=== PATIENT | female | born 1990 | race Hispanic/Latino ===

== ENCOUNTER 2024-04-10 02:15 | Inpatient (IN) | payer OTHER ==
[~2024-04-10] VITALS: Ht 154.9 cm; Wt 73.9 kg
[2024-04-10] MEDS: PANTOPrazole 40 MG/VIAL IVP ONE (02:30)
[2024-04-10] MEDS: 0.9%NACL 1000ML 1,000 ML IV ONE (02:30)
[2024-04-10 02:37] LABS: APPEARANCE,URINE CLEAR (CLEAR); BILIRUBIN,URINE NEGATIVE (NEGATIVE); COLOR,URINE COLORLESS (YELLOW); GLUCOSE, URINE (UA) NEGATIVE (NEGATIVE); KETONES,URINE NEGATIVE (NEGATIVE); LEUKOCYTE ESTERASE ,URINE NEGATIVE Leu/uL (NEGATIVE); NITRATE,URINE NEGATIVE (NEGATIVE); OCCULT BLOOD,URINE NEGATIVE (NEGATIVE); PROTEIN,URINE NEGATIVE (NEGATIVE); UROBILINOGEN,URINE 0.2 mg/dL (0.2-1.0)
[2024-04-10 02:37] LABS: BASOPHILS # (AUTO) 0.07 K/uL (0.00-0.20); BASOPHILS % (AUTO) 0.6 % (0.0-5.0); EOSINOPHILS # (AUTO) 0.17 K/uL (0.00-0.70); EOSINOPHILS % (AUTO) 1.5 % (0.0-8.0); IMMATURE GRANULOCYTE ABSOLUTE 0.03 K/uL (0-1); LYMPHOCYTES # (AUTO) 4.7 K/uL (1.0-4.8); LYMPHOCYTES % (AUTO) 40.2 % (21.0-51.0); MEAN CORPUSCULAR HEMOGLOBIN 30.3 pg (27.0-33.0); MEAN CORPUSCULAR HGB CONC 34.3 g/dL (32.0-36.0); MEAN CORPUSCULAR VOLUME 88.5 fL (79-99); MONOCYTES # (AUTO) 0.8 K/uL (0.1-1.0); MONOCYTES % (AUTO) 7.2 % (3.0-13.0); NEUTROPHILS # (AUTO) 5.8 K/uL (1.8-7.7); NEUTROPHILS % (AUTO) 50.2 % (40.0-77.0); PLATELET COUNT (AUTO) 278 K/uL (130-400); RED BLOOD CELL COUNT(AUTO) 4.52 MIL/uL (4.00-5.50); RED CELL DISTRIBUTION WIDTH 11.3 % (11.0-15.5); WHITE BLOOD COUNT (AUTO) 11.6 K/uL (4.8-10.8)
[2024-04-10 02:44] LABS: HCG,QUALITATIVE URINE NEGATIVE (NEGATIVE)
[2024-04-10 02:45] LABS: ADD UA MICROSCOPIC NO
[2024-04-10 02:47] LABS: CREATININE 0.8 mg/dL (0.5-1.0); POTASSIUM 4.3 mmol/L (3.5-5.1)
[2024-04-10 02:52] LABS: ALBUMIN 3.7 g/dL (3.5-5.0); BILIRUBIN,TOTAL 0.3 mg/dL (0.2-1.0); TOTAL PROTEIN, SERUM 7.5 g/dL (6.0-8.3)
--- NOTE | 2024-04-10 04:01 | ERN ---
General Chief Complaint: Abdominal Pain Stated Complaint: C/O RUQ PAIN WITH N X V X 5 DAYS Time Seen by MD: 02:20 Source: patient History of Present Illness Initial Comments PATIENT IS A 34-YEAR-OLD FEMALE COMING IN TO BE EVALUATED FOR RIGHT UPPER QUAD RANT PAIN. PATIENT WAS TOLD THAT SHE HAS GALLSTONES TWO YEARS AGO. SHE ALSO STATES THAT SHE WAS REFERRED TO A SURGEON RECENTLY. PATIENT STATES THAT THE PAIN IS IN THE RIGHT UPPER QUADRANT AREA RADIATES TO THE BACK SHARP 11/18. Allergies: Coded Allergies: No Known Allergies (Unverified Allergy, Unknown, 04/10/24) Past Medical History Past Medical History: No Pertinent History Past Surgical History: None Social History Social History: Negative Female( History) LMP: Mar 26, 2024 : 5 Para: 2 Aborts: 2 ROS Dictation CONSTITUTIONAL: NO CHILLS, NO FEVER, NO WEAKNESS, NO DIAPHORESIS, NO MALAISE. HEAD/FACE: NO SIGNS OF TRAUMA. EENT: NO EYE PAIN, NO BLURRED VISION, NO TEARING, NO DOUBLE VISION, NO EAR PAIN, NO EAR DISCHARGE, NO NOSE PAIN, NO NASAL CONGESTION, NO THROAT PAIN, NO THROAT SWELLING, NO MOUTH PAIN. RESPIRATORY: NO COUGH, NO ORTHOPNEA, NO SOB, NO STRIDOR, NO WHEEZING. CARDIOVASCULAR: NO CHEST PAIN, NO EDEMA, NO PALPITATIONS, NO SYNCOPE. GASTROINTESTINAL/ABDOMINAL: RIGHT UPPER QUADRANT PAIN REPRODUCIBLE ON PALPATION PAIN, NO CONSTIPATION, NO DIARRHEA, NO NAUSEA, NO VOMITING. GENITOURINARY: NO ABNORMAL DISCHARGE, NO DYSURIA, NO FREQUENT URINATION, NO HEMATURIA. NO COMPLAINTS OF PAIN IN THE GENITALS. MUSCULOSKELETAL: NO BACK PAIN, NO GOUT, NO JOINT PAIN, NO JOINT SWELLING, NO MUSCLE PAIN, NO MUSCLE STIFFNESS, NO NECK PAIN. INTEGUMENTARY: NO CHANGE IN COLOR, NO CHANGE IN HAIR/NAILS, NO DRYNESS, NO LESION, NO LUMPS, NO RASH. NEUROLOGICAL/PSYCH: NO ANXIETY, NOT DEPRESSED, NO EMOTIONAL PROBLEM, NO HEADACHE, NO NUMBNESS, NO PRE-EXISTING DEFICIT, NO HISTORY OF SEIZURES, NO TREMORS, NO WEAKNESS. HEMATOLOGIC/LYMPHATIC: NOT ANEMIC, NO HISTORY OF BLOOD CLOTS, NO APPARENT BLEEDING, NO BRUISING, GLANDS NOT SWOLLEN. ALL SYSTEMS NEGATIVE, EXCEPT NOTED. Physical Exam Physical Exam Dictation VITAL SIGNS: REVIEWED. GENERAL APPEARANCE: ALERT, ORIENTED X3, NO ACUTE DISTRESS, OBESE. HEAD AND FACE: NON-TRAUMATIC. EYES: PERRL, PINK CONJUNCTIVAS, EYELID NO TRAUMA, ANTERIOR CHAMBER CLEAR. EARS: PINNAS INTACT AND NO SIGNS OF TRAUMA OR ERYTHEMA. EAR CANALS CLEAR AND NO DISCHARGE. TMS NO ERYTHEMA. NOSE: NO DISCHARGE, NO BLEEDING. OROPHARYNX: MOUTH NORMAL, TEETH NO CARIES, TONGUE PINK. PHARYNX CLEAR, NO ERYTHEMA. TONSILS NO EXUDATES, NO ABSCESSES NOTED. MUCOUS MEMBRANE MOIST. NECK: SUPPLE, NON-TENDER, NO THYROMEGALY, NO MASSES, NO JVD, NO BRUITS. BREAST: DEFERRED. CHEST: NO TENDERNESS, NO CREPITUS, NO PARADOXICAL MOVEMENT, NO RETRACTIONS. LUNGS: CLEAR, WELL-VENTILATED, SYMMETRIC, NO RALES, NO WHEEZING, NO RHONCHI, NO STRIDOR, GOOD BREATH SOUNDS BILATERALLY. HEART: REGULAR RATE, REGULAR RHYTHM, NO MURMUR, NO GALLOPS. VASCULAR: NO PERIPHERAL EDEMA. ABDOMEN: SOFT, POSITIVE BOWEL SOUNDS, NONDISTENDED, NO GUARDING, RIGHT UPPER QUADRANT PAIN REPRODUCIBLE ON PALPATION, NO REBOUND, NO MASSES NO HEPATOMEGALY, NO SPLENOMEGALY, NO BROWN'S SIGN, NO HERNIAS. RECTAL: DEFERRED. GENITAL: DEFERRED. NEUROLOGICAL: NORMAL SPEECH, GROSS MOTOR FUNCTION INTACT, GROSS SENSORY FUN CTION INTACT. MUSCULOSKELETAL: NECK NONTENDER, FULL RANGE OF MOTION, BACK NONTENDER, FULL RANGE OF MOTION. EXTREMITIES: NONTENDER, FULL RANGE OF MOTION. SKIN: COLOR PINK, DRY, NO TURGOR, NO RASH, NO LACERATIONS, NO ABRASIONS, NO CONTUSIONS. LYMPHATICS: DEFERRED. Results Laboratory and Microbiology Lab and Micro Result Laboratory Tests Test 04/10/24 02:25 04/10/24 02:26 Urine Color COLORLESS (YELLOW) Urine Appearance CLEAR (CLEAR) Urine pH 6.0 (5.0-8.0) Urine Specific [facility] [place] 1.006 (1.001-1.031) Urine Protein NEGATIVE mg/dL (NEGATIVE) Urine Glucose (UA) NEGATIVE mg/dL (NEGATIVE) Urine Ketones NEGATIVE mg/dL (NEGATIVE) Urine Occult Blood NEGATIVE (NEGATIVE) Urine Nitrate NEGATIVE (NEGATIVE) Urine Bilirubin NEGATIVE mg/dL (NEGATIVE) Urine Urobilinogen 0.2 mg/dL (0.2-1.0) Urine Leukocyte Esterase NEGATIVE Massiel/uL Urine HCG, Qualitative NEGATIVE (NEGATIVE) White Blood Count 11.6 K/uL (4.8-10.8) H Red Blood Count 4.52 MIL/uL (4.00-5.50) Hemoglobin 13.7 g/dL (12.0-16.0) Hematocrit 40.0 % (36-48) Mean Corpuscular Volume 88.5 fL (79-99) Mean Corpuscular Hemoglobin 30.3 pg (27.0-33.0) Mean Corpuscular Hemoglobin Concent 34.3 g/dL (32.0-36.0) Red Cell Distribution Width 11.3 % (11.0-15.5) Platelet Count 278 K/uL (130-400) Mean Platelet Volume 10.4 fL (7.5-10.5) Immature Granulocyte % (Auto) 0.3 % (0-1) Neutrophils (%) (Auto) 50.2 % (40.0-77.0) Lymphocytes (%) (Auto) 40.2 % (21.0-51.0) Monocytes (%) (Auto) 7.2 % (3.0-13.0) Eosinophils (%) (Auto) 1.5 % (0.0-8.0) Basophils (%) (Auto) 0.6 % (0.0-5.0) Neutrophils # (Auto) 5.8 K/uL (1.8-7.7) Lymphocytes # (Auto) 4.7 K/uL (1.0-4.8) Monocytes # (Auto) 0.8 K/uL (0.1-1.0) Eosinophils # (Auto) 0.17 K/uL (0.00-0.70) Basophils # (Auto) 0.07 K/uL (0.00-0.20) Absolute Immature Granulocyte (auto 0.03 K/uL (0-1) Nucleated Red Blood Cells 0.0 % (0.0-0.19) Sodium Level 141 mmol/L (136-145) Potassium Level 4.3 mmol/L (3.5-5.1) Chloride Level 105 mmol/L (101-111) Carbon Dioxide Level 26 mmol/L (21-32) Blood Urea Nitrogen 18 mg/dL (7-18) Creatinine 0.8 mg/dL (0.5-1.0) Glomerular Filtration Rate Calc 98 mL/min (>90) Random Glucose 100 mg/dL (70-105) Total Calcium 8.7 mg/dL (8.5-10.1) Total Bilirubin 0.3 mg/dL (0.2-1.0) Aspartate Amino Transf (AST/SGOT) 15 U/L (10-37) Alanine Aminotransferase (ALT/SGPT) 22 U/L (12-78) Alkaline Phosphatase 108 U/L (50-136) Total Protein 7.5 g/dL (6.0-8.3) Albumin 3.7 g/dL (3.5-5.0) Lipase 37 U/L (16-77) Labs Reviewed?: Yes EKG/XRAY/US/CT/MRI Ultrasound Comment RIGHT UPPER QUADRANT ULTRASOUND- GALLSTONE AT THE NECK OF THE GALLBLADDER MDM MDM: DIFFERENTIAL DIAGNOSIS: GALLSTONE AT THE NECK OF THE GALLBLADDER, BROWN'S SIGN POSITIVE, RULE OUT ACUTE CHOLECYSTITIS RATIONALE: TESTS CONSIDERED AND ORDERED SECONDARY TO SHARED DECISION MAKING INCLUDE: LABS, ECG AND RADIOLOGY PREVIOUS OUTSIDE RECORDS REVIEWED: OLD ER VISITS. RISK OF COMPLICATION AND/OR MORBIDITY OR MORTALITY OF PATIENT MANAGEMENT: NONE MEDICATIONS-PER MEDICATION RECONCILIATION NEED FOR HOSPITALIZATION: PATIENT DOES MEET CRITERIA FOR HOSPITALIZATION. NEED FOR EMERGENCY MAJOR/MINOR SURGERY: NO THERE ARE NO SOCIAL CONCERNS WITH THIS PATIENT. PRESCRIPTION DRUG MANAGEMENT PRESCRIPTIONS WILL INCLUDE SYMPTOMATIC CARE PATIENT'S PRIOR EXTERNAL MEDICAL RECORDS FROM OTHER ER VISITS WERE REVIEWED BY ME INDICATED. PRIOR TESTING AND RESULTS FROM PREVIOUS VISITS WERE REVIEWED. PRIOR TESTS WERE TAKEN INTO ACCOUNT WITH MEDICAL DECISION MAKING AND RESOURCE UTILIZATION, INDEPENDENT HISTORIAN/HISTORIANS WERE USED TO OBTAIN COMPLETE MEDICAL HISTORY. I INDEPENDENTLY INTERPRETED THE TEST THAT WERE PERFORMED, RESULTS WERE REVIEWED BY ME AND CONSIDERED FINDINGS ON RADIOLOGY IF ORDERED. MEDICAL MANAGEMENT AND EXAMINATION INTERPRETATION DISCUSSIONS WERE HAD BY ME WITH OTHER QUALIFIED HEALTHCARE PROFESSIONALS INDICATED FOR THE PATIENT'S CARE. PATIENT WILL BE ADMITTED UNDER THE CARE OF HOSPITALIST GROUP FOR ONGOING EVALUATION OF CHOLECYSTITIS SECONDARY TO GALLSTONE AT THE NECK OF THE GALLBLADDER. SURGEON WILL BE CONSULTED UNOFFICIALLY ED Course Orders Procedure Category Date Status Time Cbc With Differential LAB 04/10/24 Complete 02:20 Comprehensive LAB 04/10/24 Complete Metabolic Panel 02:20 ,Urine Test LAB 04/10/24 Complete 02:20 Urinalysis Profile LAB 04/10/24 Complete 02:20 Us Abdominal Ruq\Ltd US 04/10/24 Taken 02:20 0.9%Nacl 1000ml (Ns PHA 04/10/24 Complete 1000ml) 02:30 Pantoprazole 40mg Inj PHA 04/10/24 Complete (Protonix 40mg Inj 02:30 Lipase LAB 04/10/24 Complete 02:20 Current Medications Medications (Trade) Dose Ordered Sig/Alcon Route PRN Reason Start Time Stop Time Status Last Admin Dose Admin Pantoprazole Sodium (PROTonix 40MG INJ) 40 mg ONCE ONCE IVP 04/10/24 02:30 04/10/24 02:31 DC 04/10/24 02:30 Sodium Chloride 1,000 ml @ 0 mls/hr ONCE ONCE IV 04/10/24 02:30 04/10/24 02:31 DC 04/10/24 02:30 Vital Signs Date Time Temp Pulse Resp B/P (MAP) Pulse Ox O2 Delivery O2 Flow Rate FiO2 04/10/24 02:38 97.9 79 18 132/65 99 Room Air* 0 21 04/10/24 02:19 97.9 80 20 106/79 98 Room Air DX & DISP Disposition: Inpatient Decision to Admit Time: 04:00 Departure Impression: Primary Impression: Acute cholecystitis Additional Impression: Gallstone (impacted) Condition: Stable Referrals: PAVITHRA PRO (PCP) TATIANA HIGGINBOTHAM MD Apr 10, 2024 04:01
[2024-04-10] MEDS: ZOSYN 3.375GM+NS 50ML 50 ML IV SCH (04:18)
[2024-04-10] MEDS: ondanSETRON 4MG INJ IVP PRN (04:18)
[2024-04-10] MEDS: LACTATED RINGERS 1000ML 1,000 ML IV SCH (04:18)
[2024-04-10] MEDS: morPHINE 2 MG SYG IVP PRN (04:18)
--- NOTE | 2024-04-10 04:25 | HP ---
[facility] HISTORY AND PHYSICAL Date of Service: Apr 10, 2024 Time of Service: 04:12 Attending physician:Colt HISTORY OF PRESENT ILLNESS: 34-year-old female with medical history of cholelithiasis, biliary colic who presented to the emergency department with chief complaints of right upper quadrant abdominal pain radiating to the back area, nausea and vomiting, described as sharp intense pain, intermittent, exacerbated with deep breathing and certain movement. She was diagnosed with cholelithiasis two years ago but was not evaluated by a surgeon. He went away since then until this past when she started experiencing the pain again. Progressively gotten worse she presented to the ED for further evaluation and management. Denies any fever , positive chills. ED presentation: Initial vital signs upon reliable tympanic temp 97.9, heart rate 80, respirations 20, blood pressure 106/79, saturating 98% on room air. Per ED report ultrasound shows gallstones and neck of the gallbladder. Lab work analysis shows WBCs 11.6. She received1 L NS bolus, Protonix 40 mg IV x1. Upon evaluation the patient is awake, alert and oriented. Bilateral breath sounds clear. Abdomen is soft, right upper quadrant tenderness, positive Powers's sign, positive bowel sounds. No other complaints reported. REVIEW OF SYSTEMS CONSTITUTIONAL: Denies fevers, + chills, or night sweats. No unintentional weight loss reported. NEUROLOGICAL: Denies headache, amaurosis fugax, motor weakness, sensory deficit, vertigo/spinning sensation, gait abnormalities, or tremors. ENT: No hearing loss, otalgia, otorrhea, rhinitis, rhinorrhea, hoarseness, or sore throat. CARDIOVASCULAR: Denies any exertional angina, dyspnea on exertion, orthopnea, paroxysmal nocturnal dyspnea, palpitations, life-threatening arrhythmias, claudication. PULMONARY: Denies any shortness of breath, cough, phlegm/sputum, hemoptysis, pleuritic chest pain. SLEEP: Denies morning headaches, daytime somnolence or napping. Denies difficul ty falling asleep, staying asleep, waking from sleep. Denies knowledge of snoring. GASTROINTESTINAL: Denies any type of dysphagia to either liquids or solids. Denies nausea, vomiting, pyrosis, early satiety, abdominal pain, diarrhea, constipation, or changes in stool consistency or caliber. Denies coffee-ground emesis, hematemesis, hematochezia, or melanotic stools. +Powers's sign GENITOURINARY: Denies frequency, urgency, nocturia, hematuria or incontinence (Storage/Irritative symptoms.) Low urinary stream, straining to void, urinary intermittency or hesitancy, splitting of the voiding stream, terminal dribbling. ENDOCRINOLOGIC: Denies polyuria, polydipsia, polyphagia or heat/cold intolerances. HEMATOLOGIC: Denies thrombophilia/previous clots, or coagulopathy/bleeding di sorders. ONCOLOGIC: Denies personal history of malignancy. DERMATOLOGIC: Denies rashes or pruritus. PSYCHIATRIC: Denies any suicidal or homicidal ideation. Denies hallucinations. PAST MEDICAL HISTORY: Cholelithiasis PAST SURGICAL HISTORY: [ ] PAST SOCIAL HISTORY: Occasional alcohol use FAMILY HISTORY: [ ] Coded Allergies: No Known Allergies (Unverified Allergy, Unknown, 04/10/24) PHYSICAL EXAM GENERAL APPEARANCE: The patient is awake, alert, and oriented, in no acute cardiopulmonary distress. NEUROLOGICAL: Cranial nerves II-XII grossly intact. Motor is 5/5 in bilateral upper and lower extremities proximal to distal. No sensory deficits. HEENT: Face is symmetric. Pupils are equal and reactive. Extraocular movements are intact. NECK: Supple. No JVD. No thyromegaly. No submental, submandibular, pre- /postauricular, occipital or supraclavicular lymphadenopathy. CHEST: Normal chest expansion. No Telemetry. LUNGS: Absence of any rales, rhonchi or any wheezing. CARDIOVASCULAR: Regular. S1 and S2 normal. No appreciable rubs, murmurs or gallops. ABDOMEN: Soft, nontender, and nondistended. There is no rebound, voluntary guarding, or rigidity. +Powers's sign : Deferred. No Salazar. EXTREMITIES: Non-edematous and not cyanotic. No clubbing. Good capillary refill. SKIN: No skin breakdown. Vital Sign (Last 24 Hours) 04/10/24 02:38 Temp 97.9 Pulse 79 Resp 18 B/P (MAP) 132/65 Pulse Ox 99 O2 Delivery Room Air* O2 Flow Rate 0 FiO2 21 LABS: Laboratory: Test 04/10/24 02:26 04/10/24 02:25 Range/Units White Blood Count 11.6 H 4.8-10.8 K/uL Red Blood Count 4.52 4.00-5.50 MIL/uL Hemoglobin 13.7 12.0-16.0 g/dL Hematocrit 40.0 36-48 % Mean Corpuscular Volume 88.5 79-99 fL Mean Corpuscular Hemoglobin 30.3 27.0-33.0 pg Mean Corpuscular Hemoglobin Concent 34.3 32.0-36.0 g/dL Red Cell Distribution Width 11.3 11.0-15.5 % Platelet Count 278 130-400 K/uL Mean Platelet Volume 10.4 7.5-10.5 fL Immature Granulocyte % (Auto) 0.3 0-1 % Neutrophils (%) (Auto) 50.2 40.0-77.0 % Lymphocytes (%) (Auto) 40.2 21.0-51.0 % Monocytes (%) (Auto) 7.2 3.0-13.0 % Eosinophils (%) (Auto) 1.5 0.0-8.0 % Basophils (%) (Auto) 0.6 0.0-5.0 % Neutrophils # (Auto) 5.8 1.8-7.7 K/uL Lymphocytes # (Auto) 4.7 1.0-4.8 K/uL Monocytes # (Auto) 0.8 0.1-1.0 K/uL Eosinophils # (Auto) 0.17 0.00-0.70 K/uL Basophils # (Auto) 0.07 0.00-0.20 K/uL Absolute Immature Granulocyte (auto 0.03 0-1 K/uL Nucleated Red Blood Cells 0.0 0.0-0.19 % Sodium Level 141 136-145 mmol/L Potassium Level 4.3 3.5-5.1 mmol/L Chloride Level 105 101-111 mmol/L Carbon Dioxide Level 26 21-32 mmol/L Blood Urea Nitrogen 18 7-18 mg/dL Creatinine 0.8 0.5-1.0 mg/dL Glomerular Filtration Rate Calc 98 >90 mL/min Random Glucose 100 70-105 mg/dL Total Calcium 8.7 8.5-10.1 mg/dL Total Bilirubin 0.3 0.2-1.0 mg/dL Aspartate Amino Transf (AST/SGOT) 15 10-37 U/L Alanine Aminotransferase (ALT/SGPT) 22 12-78 U/L Alkaline Phosphatase 108 50-136 U/L Total Protein 7.5 6.0-8.3 g/dL Albumin 3.7 3.5-5.0 g/dL Lipase 37 16-77 U/L Urine Color COLORLESS YELLOW Urine Appearance CLEAR CLEAR Urine pH 6.0 5.0-8.0 Urine Specific [place] 1.006 1.001-1.031 Urine Protein NEGATIVE NEGATIVE mg/dL Urine Glucose (UA) NEGATIVE NEGATIVE mg/dL Urine Ketones NEGATIVE NEGATIVE mg/dL Urine Occult Blood NEGATIVE NEGATIVE Urine Nitrate NEGATIVE NEGATIVE Urine Bilirubin NEGATIVE NEGATIVE mg/dL Urine Urobilinogen 0.2 0.2-1.0 mg/dL Urine Leukocyte Esterase NEGATIVE NEGATIVE Massiel/uL Urine HCG, Qualitative NEGATIVE NEGATIVE Current Medications Medications (Trade) Dose Ordered Sig/Alcon Route PRN Reason Start Time Stop Time Status Last Admin Dose Admin Acetaminophen (TYLenol 325MG TAB) 650 mg Q6H PRN PO MILD PAIN (1-3) 04/10/24 04:30 05/10/24 04:29 Lactated Ringer's 1,000 ml @ 100 mls/hr Q10H IV 04/10/24 04:30 05/10/24 04:29 UNV Morphine Sulfate (morPHINE 2MG SYG) 2 mg Q4H PRN IVP SEVERE PAIN (7-10) 04/10/24 04:30 04/17/24 04:29 UNV Piperacillin Sod/ Tazobactam Sod 50 ml @ 12.5 mls/hr ZOSY8 IV 04/10/24 05:00 04/20/24 04:59 UNV Tramadol HCl (UltRAM) 50 mg Q6H PRN PO MODERATE PAIN (4-6) 04/10/24 04:30 04/15/24 04:29 UNV DIAGNOSTICS / RADIOLOGY: [ ] ASSESSMENT: Biliary colic secondary to cholelithiasis, POA Suspected cholecystitis, POA Leukocytosis in the setting of suspected cholecystitis, POA Obesity class 1 PLAN: Admit inpatient to medical-surgical floor Keep NPO Start Zosyn empirically Lactated Ringer's at 100 mL/hour Consult General surgery in the morning Zofran as needed for nausea and vomiting Tylenol for pain or fever Prn medications for pain DVT prophylaxis not needed CBC BMP in the morning Monitor patient's condition and progress closely Disposition home Patient's case and plan of care discussed with the attending physician JUSTA GHOSH Apr 10, 2024 04:25
--- NOTE | 2024-04-10 04:29 | NUR ---
PATIENT NOT ON ANY HOME MEDS
[2024-04-10] MEDS ORDERED: traMADol HCL 50 MG TABLET PO PRN (04:30)
[2024-04-10 08:00] VITALS: BP 110/68; PULSE 71; RESP 20; TEMP 98.2; O2SAT 100
--- NOTE | 2024-04-10 08:38 | HMCIMG ---
US ABDOMINAL RUQ\E\LTD HISTORY: Adominal Pain COMPARISON: None FINDINGS: There is mild fatty infiltration of the liver. There are no focal liver masses. The liver is borderline in size at 16 cm.There is cholelithiasis with no wall thickening or pericholecystic edema. Common duct is normal at between 2 and 3 mm.. Right kidney is 10 x 3 x 4 cm. There is pelvicalyceal fullness which could represent borderline hydronephrosis..The pancreas appears normal as well. IMPRESSION: 1. Borderline hydronephrosis right kidney. 2. Cholelithiasis without evidence of acute cholecystitis. 3. Mild hepatic steatosis, liver is borderline in size at 16 cm.
--- NOTE | 2024-04-10 09:33 | NUR ---
CALLED IN CONSULT FOR DR. LINDSAY CARRASCO TO HER OFFICE.
--- NOTE | 2024-04-10 10:11 | NUR ---
DCP Pt awake, alert, oriented X3 lives with spouse Sharath Nunn [phone] in an apartment which has 18 steps to enter, does not have any medical equipment, able to perform ADLs. Anticipates discharge is for home. Addendum: 04/10/24 at 1014 by YANELI SCOTT RN CM Amended: Links added.
--- NOTE | 2024-04-10 11:32 | CONS ---
CONSULT NOTE: Consulting physician:Dr Bejarano Consulting service: General surgery Reason for consultation: biliary colic History of present illness: This 34-year-old female with no significant medical history has been consulted to surgery after presenting to the hospital with a five day history of abdominal discomfort. Due to significant increase in severity of pain patient presented for further evaluation. Patient reports last episode two years prior where she presented to the hospital and was sent home with antibiotics. Initial imaging concerning for cholelithiasis with no signs or evidence of cholecystitis on imaging. LFTs unremarkable. White count slightly elevated. Patient's pain better controlled after being medicated. Patient currently NPO Medical history: Known cholelithiasis Surgical history: Tubal ligation Review of systems: General: No Fever, No Chills, No Night Sweats, No Fatigue, No Malaise, No Appetite, No Other HEENT: No Head Aches, No Visual Changes, No Eye Pain, No Ear Pain, No Dysphasia, No Sinus Congestion, No Post Nasal Drip, No Sore Throat, No Other Pulmonary: No Dyspnea, No Cough, No Pleuritic Chest Pain, No Other Cardiovascular: No: Chest Pain, Palpitations, Orthopnea, Paroxysmal No Dyspnea, Edema, Lt Headedness, Other Gastrointestinal: No: Nausea, Vomiting, Diarrhea, Constipation, Melena, Hematochezia, Other Genitourinary: No Dysuria, No Frequency, No Incontinence, No Hematuria, No Retention, No Other Musculoskeletal: No: other, neck pain, shoulder pain, arm pain, back pain, hand pain, leg pain, foot pain Skin: No Urticaria, No Rash, No Other Neurological: No: Weakness, Numbness, Incoordination, Change in speech, Confusion, Seizures, Other Physical exam: General: Awake alert and oriented Heart: Regular rate and rhythm} Lungs: [Clear to auscultation no distress Abdomen: [ right upper quadrant tenderness to epigastric tenderness Assessment: This is a 34-year-old female with concerns of biliary colic versus potential cholecystitis Plan: At this point in time we will start with HIDA scan and await for findings Patient to be allowed diet after imaging If negative HIDA scan patient to be scheduled for follow up in outpatient setting for elective procedure If HIDA scan positive patient's likely be scheduled for surgical intervention later this week Dr. Cavazos to be updated in patient's status and surgical team to follow patient closely BRICE GALLOWAY Jr. Apr 10, 2024 11:32
[2024-04-10 12:00] VITALS: BP 98/59; PULSE 80; RESP 18; TEMP 97.4
[2024-04-10 16:20] VITALS: O2SAT 100
[2024-04-10 16:52] VITALS: BP 114/67; PULSE 79; RESP 18; TEMP 98
[2024-04-10] MEDS: acetaMINOPHEN 325 MG TAB PO PRN (19:42)
[2024-04-10 19:45] VITALS: O2SAT 98
--- NOTE | 2024-04-10 19:45 | NUR ---
H/A SHIFT ASSESSMENT DONE, PLEASE REFER TO CHART. PT CLAIMS OF HEADACHE. MEDICATED WITH TYLENOL PO FOR PAIN. KEPT NPO EXCEPT MEDS. PT REQUESTED TO SHOWER. SALINE LOCKED WRAPPED PIV SITE. PT'S FAMILY AT BEDSIDE IN ATTENDANCE TO NEEDS AT THIS TIME. WILL RE-ASSESS PT.
[2024-04-10 20:00] VITALS: BP 114/76; PULSE 81; RESP 20; TEMP 98
[2024-04-11] VITALS (7 sets, daily range): BP systolic 96–127; BP diastolic 54–80; PULSE 73–86; RESP 16–20; TEMP 97.6–98.3; O2SAT 97–100
--- NOTE | 2024-04-11 04:12 | NUR ---
PAIN PT AWAKENED TO USE THE RESTROOM. PT AMBULATORY WITHOUT ANY ASSIST. COMPLAINTS OF HAVING HEADACHE. MEDICATED WITH TYLENOL PO. ENCOURAGED TO GO BACK TO SLEEP. WILL RE-ASSESS PT.
--- NOTE | 2024-04-11 06:00 | NUR ---
ROUNDS PT RESTING WELL IN BED, STILL ASLEEP. KEPT UNDISTURBED FOR NOW. CALL LIGHT WITHIN REACH. KEPT NPO ORDERED. FOR MORE CARE.
[2024-04-11 07:00] LABS: BASOPHILS # (AUTO) 0.05 K/uL (0.00-0.20); BASOPHILS % (AUTO) 0.7 % (0.0-5.0); EOSINOPHILS # (AUTO) 0.12 K/uL (0.00-0.70); EOSINOPHILS % (AUTO) 1.6 % (0.0-8.0); HEMATOCRIT 35.1 % (36-48); IMMATURE GRANULOCYTE ABSOLUTE 0.01 K/uL (0-1); LYMPHOCYTES # (AUTO) 3.1 K/uL (1.0-4.8); LYMPHOCYTES % (AUTO) 41.2 % (21.0-51.0); MEAN CORPUSCULAR HEMOGLOBIN 30.5 pg (27.0-33.0); MEAN CORPUSCULAR HGB CONC 34.2 g/dL (32.0-36.0); MEAN CORPUSCULAR VOLUME 89.1 fL (79-99); MONOCYTES # (AUTO) 0.7 K/uL (0.1-1.0); MONOCYTES % (AUTO) 8.8 % (3.0-13.0); NEUTROPHILS # (AUTO) 3.6 K/uL (1.8-7.7); NEUTROPHILS % (AUTO) 47.6 % (40.0-77.0); PLATELET COUNT (AUTO) 230 K/uL (130-400); RED BLOOD CELL COUNT(AUTO) 3.94 MIL/uL (4.00-5.50); RED CELL DISTRIBUTION WIDTH 11.5 % (11.0-15.5); WHITE BLOOD COUNT (AUTO) 7.5 K/uL (4.8-10.8)
[2024-04-11 07:31] LABS: BILIRUBIN,TOTAL 0.6 mg/dL (0.2-1.0); CREATININE 0.8 mg/dL (0.5-1.0); MAGNESIUM 1.9 mg/dL (1.80-2.40); POTASSIUM 4.6 mmol/L (3.5-5.1); TOTAL PROTEIN, SERUM 6.6 g/dL (6.0-8.3)
--- NOTE | 2024-04-11 12:52 | PN ---
[facility] PROGRESS NOTE Date of Service: Apr 11, 2024 Time of Service: 12:49 SUBJECTIVE: 04/11/24 power chart review, patient remains hemodynamically stable, BP 121/69, rest of vital signs are normal, afebrile, saturating normal on room air. Results of CBC reviewed, WBC back to normal range. Patient on IV antibiotics with Zosyn pharmacy to dose. Creatinine remained stable at 0.8. Patient evaluated by General surgery, HIDA scan ordered, we will follow results. If negative HIDA scan patient to be scheduled for follow up as an outpatient for elective procedure, if positive, patient likely we will be scheduled for surgical intervention later this week. at bedside during my visit. REVIEW OF SYSTEMS CONSTITUTIONAL: Denies fevers, + chills, or night sweats. No unintentional weight loss reported. NEUROLOGICAL: Denies headache, amaurosis fugax, motor weakness, sensory deficit, vertigo/spinning sensation, gait abnormalities, or tremors. ENT: No hearing loss, otalgia, otorrhea, rhinitis, rhinorrhea, hoarseness, or sore throat. CARDIOVASCULAR: Denies any exertional angina, dyspnea on exertion, orthopnea, paroxysmal nocturnal dyspnea, palpitations, life-threatening arrhythmias, claudication. PULMONARY: Denies any shortness of breath, cough, phlegm/sputum, hemoptysis, pleuritic chest pain. SLEEP: Denies morning headaches, daytime somnolence or napping. Denies difficulty falling asleep, staying asleep, waking from sleep. Denies knowledge of snoring. GASTROINTESTINAL: Denies any type of dysphagia to either liquids or solids. Denies nausea, vomiting, pyrosis, early satiety, abdominal pain, diarrhea, constipation, or changes in stool consistency or caliber. Denies coffee-ground emesis, hematemesis, hematochezia, or melanotic stools. +Powers's sign GENITOURINARY: Denies frequency, urgency, nocturia, hematuria or incontinence (Storage/Irritative symptoms.) Low urinary stream, straining to void, urinary intermittency or hesitancy, splitting of the voiding stream, terminal dribbling. ENDOCRINOLOGIC: Denies polyuria, polydipsia, polyphagia or heat/cold intolerances. HEMATOLOGIC: Denies thrombophilia/previous clots, or coagulopathy/bleeding disorders. ONCOLOGIC: Denies personal history of malignancy. DERMATOLOGIC: Denies rashes or pruritus. PSYCHIATRIC: Denies any suicidal or homicidal ideation. Denies hallucinations. PHYSICAL EXAM GENERAL APPEARANCE: The patient is awake, alert, and oriented, in no acute cardiopulmonary distress. NEUROLOGICAL: Cranial nerves II-XII grossly intact. Motor is 5/5 in bilateral upper and lower extremities proximal to distal. No sensory deficits. HEENT: Face is symmetric. Pupils are equal and reactive. Extraocular movements are intact. NECK: Supple. No JVD. No thyromegaly. No submental, submandibular, pre-/postauricular, occipital or supraclavicular lymphadenopathy. CHEST: Normal chest expansion. No Telemetry. LUNGS: Absence of any rales, rhonchi or any wheezing. CARDIOVASCULAR: Regular. S1 and S2 normal. No appreciable rubs, murmurs or gallops. ABDOMEN: Soft, nontender, and nondistended. There is no rebound, voluntary guarding, or rigidity. +Powers's sign : Deferred. No Salazar. EXTREMITIES: Non-edematous and not cyanotic. No clubbing. Good capillary refill. SKIN: No skin breakdown. Vital Signs (last 8hr) Date Time Temp Pulse Resp B/P (MAP) Pulse Ox O2 Delivery O2 Flow Rate FiO2 04/11/24 11:33 98.1 73 18 121/69 97 Room Air 04/11/24 08:30 97.5 84 16 114/64 97 Room Air LABS: Laboratory: Test 04/11/24 06:19 04/10/24 02:26 04/10/24 02:25 Range/Units White Blood Count 7.5 4.8-10.8 K/uL Red Blood Count 3.94 L 4.00-5.50 MIL/uL Hemoglobin 12.0 12.0-16.0 g/dL Hematocrit 35.1 L 36-48 % Mean Corpuscular Volume 89.1 79-99 fL Mean Corpuscular Hemoglobin 30.5 27.0-33.0 pg Mean Corpuscular Hemoglobin Concent 34.2 32.0-36.0 g/dL Red Cell Distribution Width 11.5 11.0-15.5 % Platelet Count 230 130-400 K/uL Mean Platelet Volume 10.5 7.5-10.5 fL Immature Granulocyte % (Auto) 0.1 0-1 % Neutrophils (%) (Auto) 47.6 40.0-77.0 % Lymphocytes (%) (Auto) 41.2 21.0-51.0 % Monocytes (%) (Auto) 8.8 3.0-13.0 % Eosinophils (%) (Auto) 1.6 0.0-8.0 % Basophils (%) (Auto) 0.7 0.0-5.0 % Neutrophils # (Auto) 3.6 1.8-7.7 K/uL Lymphocytes # (Auto) 3.1 1.0-4.8 K/uL Monocytes # (Auto) 0.7 0.1-1.0 K/uL Eosinophils # (Auto) 0.12 0.00-0.70 K/uL Basophils # (Auto) 0.05 0.00-0.20 K/uL Absolute Immature Granulocyte (auto 0.01 0-1 K/uL Nucleated Red Blood Cells 0.0 0.0-0.19 % Sodium Level 141 136-145 mmol/L Potassium Level 4.6 3.5-5.1 mmol/L Chloride Level 107 101-111 mmol/L Carbon Dioxide Level 28 21-32 mmol/L Blood Urea Nitrogen 8 7-18 mg/dL Creatinine 0.8 0.5-1.0 mg/dL Glomerular Filtration Rate Calc 98 >90 mL/min Random Glucose 86 70-105 mg/dL Total Calcium 8.4 L 8.5-10.1 mg/dL Magnesium Level 1.90 1.80-2.40 mg/dL Total Bilirubin 0.6 0.2-1.0 mg/dL Aspartate Amino Transf (AST/SGOT) 66 H 10-37 U/L Alanine Aminotransferase (ALT/SGPT) 99 H 12-78 U/L Alkaline Phosphatase 116 50-136 U/L Total Protein 6.6 6.0-8.3 g/dL Albumin 3.0 L 3.5-5.0 g/dL Lipase 37 16-77 U/L Urine Color COLORLESS YELLOW Urine Appearance CLEAR CLEAR Urine pH 6.0 5.0-8.0 Urine Specific [place] 1.006 1.001-1.031 Urine Protein NEGATIVE NEGATIVE mg/dL Urine Glucose (UA) NEGATIVE NEGATIVE mg/dL Urine Ketones NEGATIVE NEGATIVE mg/dL Urine Occult Blood NEGATIVE NEGATIVE Urine Nitrate NEGATIVE NEGATIVE Urine Bilirubin NEGATIVE NEGATIVE mg/dL Urine Urobilinogen 0.2 0.2-1.0 mg/dL Urine Leukocyte Esterase NEGATIVE NEGATIVE [place]/uL Urine HCG, Qualitative NEGATIVE NEGATIVE Current Medications Medications (Trade) Dose Ordered Sig/Alcon Route PRN Reason Start Time Stop Time Status Last Admin Dose Admin Acetaminophen (TYLenol 325MG TAB) 650 mg Q6H PRN PO MILD PAIN (1-3) 04/10/24 04:30 05/10/24 04:29 04/11/24 04:12 650 MG Lactated Ringer's 1,000 ml @ 100 mls/hr Q10H IV 04/10/24 04:30 05/10/24 04:29 04/11/24 09:46 100 MLS/HR Morphine Sulfate (morPHINE 2MG SYG) 2 mg Q4H PRN IVP SEVERE PAIN (7-10) 04/10/24 04:30 04/17/24 04:29 04/10/24 16:10 2 MG Ondansetron HCl (zoFRAN 4MG INJ) 4 mg Q6H PRN IVP NAUSEA/VOMITING 04/10/24 04:30 05/10/24 04:29 04/10/24 04:18 4 MG Piperacillin Sod/ Tazobactam Sod 50 ml @ 12.5 mls/hr [id number] IV 04/10/24 05:00 04/20/24 04:59 04/11/24 04:00 12.5 MLS/HR Tramadol HCl (UltRAM) 50 mg Q6H PRN PO MODERATE PAIN (4-6) 04/10/24 04:30 04/15/24 04:29 DIAGNOSTICS / RADIOLOGY: [ ] ASSESSMENT: Biliary colic secondary to cholelithiasis, POA Suspected cholecystitis, POA Leukocytosis in the setting of suspected cholecystitis, POA Obesity class 1 PLAN: Remains admitted to the medical floor. Keep NPO Continue Zosyn IV Lactated Ringer's at 100 mL/hour Continue to follow surgical input and recommendations Zofran as needed for nausea and vomiting Tylenol for pain or fever Prn medications for pain DVT prophylaxis not needed CBC BMP in the morning Monitor patient's condition and progress closely Disposition: Patient remains admitted to medical floor, continue NPO, pending HIDA results. If negative we will follow up as an outpatient for elective procedure with General surgery, if positive plan for surgical intervention later this week. VERN SON MD Apr 11, 2024 12:52
--- NOTE | 2024-04-11 18:12 | PN ---
GENERAL SURGERY PROGRESS NOTE Date/Time Patient Seen: 04/11/2024 5:45 p.m. Problem List: Biliary colic Interval History: Patient reports that her pain has significantly improved. She is tolerating clear liquids. HIDA scan results pending. Current Medications Medications (Trade) Dose Ordered Sig/Alcon Route Start Time Stop Time Status Last Admin Dose Admin Lactated Ringer's 1,000 ml @ 100 mls/hr Q10H IV 04/10/24 04:30 05/10/24 04:29 04/11/24 09:46 100 MLS/HR Piperacillin Sod/ Tazobactam Sod 50 ml @ 12.5 mls/hr [id number] IV 04/10/24 05:00 04/20/24 04:59 04/11/24 12:55 12.5 MLS/HR Physical Examination: GENERAL: No acute distress. HEAD: Normal with no signs of head trauma. LUNGS: Respirations nonlabored HEART: Regular rate and rhythm ABD: Soft, nondistended, nontender, no rebound, no guarding : Not examined LYMPH: No lymphadenopathy noted. EXT: No clubbing, cyanosis or edema. SKIN: No rashes or lesions noted. NEURO: Awake, alert, and oriented x3. No focal sensory or strength deficits noted. Vital Signs (last 8hr) Date Time Temp Pulse Resp B/P (MAP) Pulse Ox O2 Delivery O2 Flow Rate FiO2 04/11/24 16:41 97.9 80 18 127/73 95 Room Air 04/11/24 11:33 98.1 73 18 121/69 97 Room Air Laboratory: Hematology Labs: Test 04/11/24 06:19 Range/Units White Blood Count 7.5 4.8-10.8 K/uL Red Blood Count 3.94 L 4.00-5.50 MIL/uL Hemoglobin 12.0 12.0-16.0 g/dL Hematocrit 35.1 L 36-48 % Mean Corpuscular Volume 89.1 79-99 fL Mean Corpuscular Hemoglobin 30.5 27.0-33.0 pg Mean Corpuscular Hemoglobin Concent 34.2 32.0-36.0 g/dL Red Cell Distribution Width 11.5 11.0-15.5 % Platelet Count 230 130-400 K/uL Mean Platelet Volume 10.5 7.5-10.5 fL Immature Granulocyte % (Auto) 0.1 0-1 % Neutrophils (%) (Auto) 47.6 40.0-77.0 % Lymphocytes (%) (Auto) 41.2 21.0-51.0 % Monocytes (%) (Auto) 8.8 3.0-13.0 % Eosinophils (%) (Auto) 1.6 0.0-8.0 % Basophils (%) (Auto) 0.7 0.0-5.0 % Neutrophils # (Auto) 3.6 1.8-7.7 K/uL Lymphocytes # (Auto) 3.1 1.0-4.8 K/uL Monocytes # (Auto) 0.7 0.1-1.0 K/uL Eosinophils # (Auto) 0.12 0.00-0.70 K/uL Basophils # (Auto) 0.05 0.00-0.20 K/uL Absolute Immature Granulocyte (auto 0.01 0-1 K/uL Nucleated Red Blood Cells 0.0 0.0-0.19 % Chemistry Labs: Test 04/11/24 06:19 04/10/24 02:26 Range/Units Sodium Level 141 136-145 mmol/L Potassium Level 4.6 3.5-5.1 mmol/L Chloride Level 107 101-111 mmol/L Carbon Dioxide Level 28 21-32 mmol/L Blood Urea Nitrogen 8 7-18 mg/dL Creatinine 0.8 0.5-1.0 mg/dL Glomerular Filtration Rate Calc 98 >90 mL/min Random Glucose 86 70-105 mg/dL Total Calcium 8.4 L 8.5-10.1 mg/dL Magnesium Level 1.90 1.80-2.40 mg/dL Total Bilirubin 0.6 0.2-1.0 mg/dL Aspartate Amino Transf (AST/SGOT) 66 H 10-37 U/L Alanine Aminotransferase (ALT/SGPT) 99 H 12-78 U/L Alkaline Phosphatase 116 50-136 U/L Total Protein 6.6 6.0-8.3 g/dL Albumin 3.0 L 3.5-5.0 g/dL Lipase 37 16-77 U/L Diagnostics / Radiology: No new imaging Impression and Plan: This is a 34-year-old female with right upper quadrant abdominal pain that appears to have resolved. This is most likely due to symptomatic cholelithiasis. HIDA scan is pending to rule out acute cholecystitis. Patient is okay for clear liquid diet from a surgical standpoint. She should made NPO at midnight in case the HIDA scan comes back positive. LUIS A OVALLE DO Apr 11, 2024 18:12
[2024-04-12] VITALS: BP 109/74; PULSE 83; RESP 18; TEMP 98.1
[2024-04-12 04:00] VITALS: BP 106/74; PULSE 85; RESP 20; TEMP 97.9
[2024-04-12 04:53] LABS: HEMATOCRIT 34.8 % (36-48); MEAN CORPUSCULAR HEMOGLOBIN 30.4 pg (27.0-33.0); MEAN CORPUSCULAR HGB CONC 33.9 g/dL (32.0-36.0); MEAN CORPUSCULAR VOLUME 89.7 fL (79-99); RED BLOOD CELL COUNT(AUTO) 3.88 MIL/uL (4.00-5.50); RED CELL DISTRIBUTION WIDTH 11.5 % (11.0-15.5); WHITE BLOOD COUNT (AUTO) 8.4 K/uL (4.8-10.8)
[2024-04-12 05:22] LABS: ALBUMIN 2.9 g/dL (3.5-5.0); BILIRUBIN,TOTAL 0.2 mg/dL (0.2-1.0); CREATININE 0.8 mg/dL (0.5-1.0); MAGNESIUM 1.8 mg/dL (1.80-2.40); POTASSIUM 4.5 mmol/L (3.5-5.1); TOTAL PROTEIN, SERUM 6.6 g/dL (6.0-8.3)
[2024-04-12 08:12] VITALS: BP 112/72; PULSE 75; RESP 16; TEMP 98.3
--- NOTE | 2024-04-12 08:45 | HMCIMG ---
NM HIDA WO EF/CCK REASON: CHOLELITHIASIS COMPARISON: None TECHNIQUE: Routine images are acquired following injection of 7 mCi technetium 99m Choletec. FINDINGS: There is prompt hepatic uptake and excretion. There is prompt appearance of common duct activity. There is a focal area of gradually increasing uptake centrally in the liver hilum which may be early appearance of the gallbladder. 4 hour delay was performed, hepatic activity has nearly completely cleared, there is persistent activity in the region of the liver hilum consistent with gallbladder. IMPRESSION: 1. Normal hepatobiliary scan.
[2024-04-12 09:06] VITALS: O2SAT 98
[2024-04-12 11:52] VITALS: BP 112/70; PULSE 86; RESP 18; TEMP 98.2
--- NOTE | 2024-04-12 13:05 | PN ---
[facility] PROGRESS NOTE Date of Service: Apr 12, 2024 Time of Service: 13:01 SUBJECTIVE: 04/11/24 power chart review, patient remains hemodynamically stable, BP 121/69, rest of vital signs are normal, afebrile, saturating normal on room air. Results of CBC reviewed, WBC back to normal range. Patient on IV antibiotics with Zosyn pharmacy to dose. Creatinine remained stable at 0.8. Patient evaluated by General surgery, HIDA scan ordered, we will follow results. If negative HIDA scan patient to be scheduled for follow up as an outpatient for elective procedure, if positive, patient likely we will be scheduled for surgical intervention later this week. at bedside during my visit. 04/12/24 patient is seen and examined, BP 112/70, afebrile, saturating normal on room air. CBC shows hemoglobin 11.8, hematocrit 34 point eight, platelet count of 213. CMP is unremarkable. HIDA scan showing normal hepatobiliary scan. The patient was started on clear liquid diet yesterday. Pending further recommendations by General surgery in terms of lap judie as an outpatient versus inpatient. We will follow up. Patient to be discharged home today, cleared from surgical standpoint. Patient can follow up as an outpatient. REVIEW OF SYSTEMS CONSTITUTIONAL: Denies fevers, + chills, or night sweats. No unintentional weight loss reported. NEUROLOGICAL: Denies headache, amaurosis fugax, motor weakness, sensory deficit, vertigo/spinning sensation, gait abnormalities, or tremors. ENT: No hearing loss, otalgia, otorrhea, rhinitis, rhinorrhea, hoarseness, or sore throat. CARDIOVASCULAR: Denies any exertional angina, dyspnea on exertion, orthopnea, paroxysmal nocturnal dyspnea, palpitations, life-threatening arrhythmias, claudication. PULMONARY: Denies any shortness of breath, cough, phlegm/sputum, hemoptysis, pleuritic chest pain. SLEEP: Denies morning headaches, daytime somnolence or napping. Denies difficulty falling asleep, staying asleep, waking from sleep. Denies knowledge of snoring. GASTROINTESTINAL: Denies any type of dysphagia to either liquids or solids. Denies nausea, vomiting, pyrosis, early satiety, abdominal pain, diarrhea, constipation, or changes in stool consistency or caliber. Denies coffee-ground emesis, hematemesis, hematochezia, or melanotic stools. +Powers's sign GENITOURINARY: Denies frequency, urgency, nocturia, hematuria or incontinence (Storage/Irritative symptoms.) Low urinary stream, straining to void, urinary intermittency or hesitancy, splitting of the voiding stream, terminal dribbling. ENDOCRINOLOGIC: Denies polyuria, polydipsia, polyphagia or heat/cold intolerances. HEMATOLOGIC: Denies thrombophilia/previous clots, or coagulopathy/bleeding disorders. ONCOLOGIC: Denies personal history of malignancy. DERMATOLOGIC: Denies rashes or pruritus. PSYCHIATRIC: Denies any suicidal or homicidal ideation. Denies hallucinations. PHYSICAL EXAM GENERAL APPEARANCE: The patient is awake, alert, and oriented, in no acute cardiopulmonary distress. NEUROLOGICAL: Cranial nerves II-XII grossly intact. Motor is 5/5 in bilateral upper and lower extremities proximal to distal. No sensory deficits. HEENT: Face is symmetric. Pupils are equal and reactive. Extraocular movements are intact. NECK: Supple. No JVD. No thyromegaly. No submental, submandibular, pre- /postauricular, occipital or supraclavicular lymphadenopathy. CHEST: Normal chest expansion. No Telemetry. LUNGS: Absence of any rales, rhonchi or any wheezing. CARDIOVASCULAR: Regular. S1 and S2 normal. No appreciable rubs, murmurs or gallops. ABDOMEN: Soft, nontender, and nondistended. There is no rebound, voluntary guarding, or rigidity. +Powers's sign : Deferred. No Salazar. EXTREMITIES: Non-edematous and not cyanotic. No clubbing. Good capillary refill. SKIN: No skin breakdown. Vital Signs (last 8hr) Date Time Temp Pulse Resp B/P (MAP) Pulse Ox O2 Delivery O2 Flow Rate FiO2 04/12/24 11:52 98.2 86 18 112/70 98 Room Air 04/12/24 08:12 98.2 75 16 112/72 98 Room Air LABS: Laboratory: Test 04/12/24 04:42 04/11/24 06:19 Range/Units White Blood Count 8.4 4.8-10.8 K/uL Red Blood Count 3.88 L 4.00-5.50 MIL/uL Hemoglobin 11.8 L 12.0-16.0 g/dL Hematocrit 34.8 L 36-48 % Mean Corpuscular Volume 89.7 79-99 fL Mean Corpuscular Hemoglobin 30.4 27.0-33.0 pg Mean Corpuscular Hemoglobin Concent 33.9 32.0-36.0 g/dL Red Cell Distribution Width 11.5 11.0-15.5 % Platelet Count 213 130-400 K/uL Mean Platelet Volume 10.4 7.5-10.5 fL Nucleated Red Blood Cells 0.0 0.0-0.19 % Sodium Level 140 136-145 mmol/L Potassium Level 4.5 3.5-5.1 mmol/L Chloride Level 106 101-111 mmol/L Carbon Dioxide Level 27 21-32 mmol/L Blood Urea Nitrogen 10 7-18 mg/dL Creatinine 0.8 0.5-1.0 mg/dL Glomerular Filtration Rate Calc 98 >90 mL/min Random Glucose 104 70-105 mg/dL Total Calcium 8.6 8.5-10.1 mg/dL Magnesium Level 1.80 1.80-2.40 mg/dL Total Bilirubin 0.2 # 0.2-1.0 mg/dL Aspartate Amino Transf (AST/SGOT) 44 H 10-37 U/L Alanine Aminotransferase (ALT/SGPT) 83 H 12-78 U/L Alkaline Phosphatase 118 50-136 U/L Total Protein 6.6 6.0-8.3 g/dL Albumin 2.9 L 3.5-5.0 g/dL Immature Granulocyte % (Auto) 0.1 0-1 % Neutrophils (%) (Auto) 47.6 40.0-77.0 % Lymphocytes (%) (Auto) 41.2 21.0-51.0 % Monocytes (%) (Auto) 8.8 3.0-13.0 % Eosinophils (%) (Auto) 1.6 0.0-8.0 % Basophils (%) (Auto) 0.7 0.0-5.0 % Neutrophils # (Auto) 3.6 1.8-7.7 K/uL Lymphocytes # (Auto) 3.1 1.0-4.8 K/uL Monocytes # (Auto) 0.7 0.1-1.0 K/uL Eosinophils # (Auto) 0.12 0.00-0.70 K/uL Basophils # (Auto) 0.05 0.00-0.20 K/uL Absolute Immature Granulocyte (auto 0.01 0-1 K/uL Current Medications Medications (Trade) Dose Ordered Sig/Alcon Route PRN Reason Start Time Stop Time Status Last Admin Dose Admin Acetaminophen (TYLenol 325MG TAB) 650 mg Q6H PRN PO MILD PAIN (1-3) 04/10/24 04:30 05/10/24 04:29 04/11/24 04:12 650 MG Lactated Ringer's 1,000 ml @ 100 mls/hr Q10H IV 04/10/24 04:30 05/10/24 04:29 04/11/24 19:56 100 MLS/HR Morphine Sulfate (morPHINE 2MG SYG) 2 mg Q4H PRN IVP SEVERE PAIN (7-10) 04/10/24 04:30 04/17/24 04:29 04/12/24 09:09 2 MG Ondansetron HCl (zoFRAN 4MG INJ) 4 mg Q6H PRN IVP NAUSEA/VOMITING 04/10/24 04:30 05/10/24 04:29 04/12/24 03:28 4 MG Piperacillin Sod/ Tazobactam Sod 50 ml @ 12.5 mls/hr [id number] IV 04/10/24 05:00 04/20/24 04:59 04/12/24 12:27 12.5 MLS/HR Tramadol HCl (UltRAM) 50 mg Q6H PRN PO MODERATE PAIN (4-6) 04/10/24 04:30 04/15/24 04:29 DIAGNOSTICS / RADIOLOGY: [ ] ASSESSMENT: Biliary colic secondary to cholelithiasis, POA Suspected cholecystitis, POA Leukocytosis in the setting of suspected cholecystitis, POA Obesity class 1 PLAN: Remains admitted to the medical floor. Keep NPO Continue Zosyn IV Lactated Ringer's at 100 mL/hour Continue to follow surgical input and recommendations Zofran as needed for nausea and vomiting Tylenol for pain or fever Prn medications for pain DVT prophylaxis not needed CBC BMP in the morning Monitor patient's condition and progress closely Disposition: Remains admitted to the medical floor, HIDA scan is normal, pending further recommendations by General surgery. VERN SON MD Apr 12, 2024 13:05
[2024-04-12] MEDS ORDERED: AMOX1TAB16 PO (15:24)
--- NOTE | 2024-04-12 15:26 | DS ---
Discharge Summary Hospital Course Summary: The patient admitted to the hospital April 10, 2024 with the following history of the present illness: 34-year-old female with medical history of cholelithiasis, biliary colic who presented to the emergency department with chief complaints of right upper quadrant abdominal pain radiating to the back area, nausea and vomiting, described as sharp intense pain, intermittent, exacerbated with deep breathing and certain movement. She was diagnosed with cholelithiasis two years ago but was not evaluated by a surgeon. He went away since then until this past when she started experiencing the pain again. Progressively gotten worse she presented to the ED for further evaluation and management. Denies any fever , positive chills. ED presentation: Initial vital signs upon reliable tympanic temp 97.9, heart rate 80, respirations 20, blood pressure 106/79, saturating 98% on room air. Per ED report ultrasound shows gallstones and neck of the gallbladder. Lab work analysis shows WBCs 11.6. She received1 L NS bolus, Protonix 40 mg IV x1. Upon evaluation the patient is awake, alert and oriented. Bilateral breath sounds clear. Abdomen is soft, right upper quadrant tenderness, positive Powers's sign, positive bowel sounds. No other complaints reported. 04/11/24 power chart review, patient remains hemodynamically stable, BP 121/69, rest of vital signs are normal, afebrile, saturating normal on room air. Results of CBC reviewed, WBC back to normal range. Patient on IV antibiotics with Zosyn pharmacy to dose. Creatinine remained stable at 0.8. Patient evaluated by General surgery, HIDA scan ordered, we will follow results. If negative HIDA scan patient to be scheduled for follow up as an outpatient for elective procedure, if positive, patient likely we will be scheduled for surgical intervention later this week. at bedside during my visit. 04/12/24 patient is seen and examined, BP 112/70, afebrile, saturating normal on room air. CBC shows hemoglobin 11.8, hematocrit 34 point eight, platelet count of 213. CMP is unremarkable. HIDA scan showing normal hepatobiliary scan. The patient was started on clear liquid diet yesterday. Pending further recommendations by General surgery in terms of lap judie as an outpatient versus inpatient. We will follow up. [employer]der Diver(s): General surgery Assessment/Plan: Final diagnosis Biliary colic secondary to cholelithiasis, POA Acute cholecystitis ruled out, POA Leukocytosis in the setting of suspected cholecystitis, POA Obesity class 1 Discharge Instructions: Patient to follow up with PCP and General surgery as an outpatient and to return to the hospital if condition changes. Patient agreed with plan and understood the information provided. Time spent arranging discharge: 31-60 minutes VERN SON MD Apr 12, 2024 15:26
--- NOTE | 2024-04-12 16:30 | NUR ---
DISCHARGE PT PIV DC'D PT VERBALIZED UNDERSTANDING OF DISCHARGE INSTRUCTIONS PT GATHERED AND TOOK ALL BELONGINGS PT HAD NO FURTHER QUESTIONS AT TIME OF DISCHARGE
== END 2024-04-12 16:45 | disposition home or self-care (01) | DRG 446 ==
LOC: EDH 02:15 → EDHIP 02:16 → UNDOADMIN 04:01 → EDHIP 16:20 → 3CH 16:20 → EDHIP 04-12 15:10 → 3CH 04-12 15:10
PROVIDERS: ADMIT Hospitalist; ATTEND Hospitalist
DX: K80.70 Calculus of gallbladder and bile duct without cholecystitis without obstruction (principal); E66.9 Obesity, unspecified; D72.829 Elevated white blood cell count, unspecified; Z79.899 Other long term (current) drug therapy; Z68.30 Body mass index [BMI] 30.0-30.9, adult
CPT/HCPCS: 36415; 76705; 78226; 80053; 81003; 81025; 83690; 83735; 85025; 85027; 96374; 99285; A9537; G0378; J2270; J2405; J2470; J2543; J7030; J7120